=== PATIENT | male | born 1990 | race African-American/Black ===

== ENCOUNTER 2022-01-18 18:48 | Emergency (ER) | payer MEDICAID, OTHER ==
[~2022-01-18] VITALS: Ht 185.4 cm; Wt 127.0 kg
[2022-01-18] MEDS ORDERED: IBUPROFEN 600MG TABLET PO ONE (20:00)
[2022-01-18] MEDS ORDERED: LIDOCAINE HCL/PF 1% 10 MG/ML 5ML VIAL INFIL ONE (20:30)
[2022-01-18] MEDS ORDERED: LIDOCAINE HCL 1% 10 MG/ML 10ML VIAL IJ NR (20:45)
[2022-01-18] MEDS ORDERED: IBUP-2028 MT (22:38)
[2022-01-18 23:36] VITALS: BP 135/81
== END 2022-01-18 23:40 | disposition home or self-care (01) ==
LOC: ER 18:48
DX: S63.280A Dislocation of proximal interphalangeal joint of right index finger, initial encounter (principal); X58.XXXA Exposure to other specified factors, initial encounter; Y93.89 Activity, other specified; Y92.9 Unspecified place or not applicable
CPT/HCPCS: 73130; 73140; 99284; J3490

== ENCOUNTER 2022-01-27 01:01 | Emergency (ER) | payer OTHER, MEDICAID ==
[~2022-01-27] VITALS: Ht 188 cm; Wt 146.0 kg
[~2022-01-27 01:01] MED LIST: IBUP-2028 MT
[2022-01-27 02:44] VITALS: BP 140/72
[2022-01-27] MEDS ORDERED: ACETAMINOPHEN WITH CODEINE 300/30MG TABLET PO NR (02:45)
== END 2022-01-27 02:50 | disposition home or self-care (01) ==
LOC: ER 01:01
DX: M25.512 Pain in left shoulder (principal); M25.511 Pain in right shoulder; I49.8 Other specified cardiac arrhythmias
CPT/HCPCS: 93005; 99283